=== PATIENT | female | born 1990 | race African-American/Black ===

== ENCOUNTER 2020-01-18 10:22 | Emergency (ER) | payer OTHER, SELFPAY ==
--- NOTE | ~2020-01-18 | US_ITS ---
EXAMINATION: US OB <= 14 weeks fetus DATE: 01/18/2020 11:38 INDICATION: Vaginal bleeding during first trimester TECHNIQUE: Real-time pelvic transabdominal and transvaginal ultrasound was performed. COMPARISON: None. FINDINGS: The uterus measures 7.9 x 4.5 x 4.3 cm. No intrauterine is identified. The endom etrial complex measures 11 mm in thickness. The right ovary measures 2.8 x 2.0 x 2.2 cm. The left ova ry measures 3.2 x 1.8 x 2.2 cm. There is a small amount of free fluid in the pelvis. IMPRESSION: 1. of unknown location. Although no intrauterine gestational sac is seen, this may be due t o early gestation. If the patient is clinically stable, recommend followup with serial beta-hCG and u ltrasound. Reviewed, dictated and finalized at location A. L PUNCH PRESS OPERATOR IMPRESSION: 1. of unknown location. Although no intrauterine gestational sac is s een, this may be due to early gestation. If the patient is clinically stable, r ecommend followup with serial beta-hCG and ultrasound.
[2020-01-18 10:24] VITALS: BP 110/73; PULSE 70; RESP 20; TEMP 37.7; O2SAT 100
[2020-01-18 10:37] VITALS: BP 120/76; PULSE 59; RESP 16; TEMP 36.3; O2SAT 99
[2020-01-18 10:37] LABS: Hematocrit 34.3 % (37.0-47.0); Hemoglobin 11.1 g/dL (12.0-15.0); Mean Corpuscular HGB Conc 32.4 g/dl (32-36); Mean Corpuscular Volume 86.6 fl (80-100); Mean Platelet Volume 12.5 fl (7.4-10.4); Platelet Count Result 161 k/mm3 (150-375); Red Blood Count 3.96 M/mm3 (4.2-5.4); Red Cell Distribution Width 14.6 % (11.5-14.5); White Blood Count 3.1 K/mm3 (4.5-10.0)
[2020-01-18 10:50] LABS: Eosinophils Absolute Manual 0.03 K/mm3 (0.02-0.5); Eosinophils Percent Manual 1 % (0-4); Lymphocytes Absolute Manual 1.42 K/mm3 (1.1-4.5); Monocytes Absolute Manual 0.09 K/mm3 (0.1-0.90); Monocytes Percent Manual 3 % (3-9); Neutrophils Percent Manual 50 % (46-73); Total Cells Counted 100
[2020-01-18 10:54] LABS: Ovalocytes 1+ (NORMAL); Platelet Estimate Adequate (Adequate); Target Cells 2+ (NORMAL)
[2020-01-18 10:55] LABS: Large Platelets Present
--- NOTE | 2020-01-18 10:59 | ED.FEMALEGU ---
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 Pt states that she began spotting on Friday (4 days ago) and was seen at [facility], who performed a pelvic exam and prescribed her Progesterone d/t her low HCG level. She stated that after taking the pills, she began spotting again, but today when she woke up she began having heavy vaginal bleeding and passing clots. Pt notes that she has not had an US yet and is scheduled to see her OBGYN for her first appointment on February 07, 2020. She denies having any significant PMHx and denies having any hx of an ectopic . Pt notes cramping, but denies any N/V/D. Pt's LNMP was 12/11/2019. elicited complaint: vaginal bleeding and possible miscarriage Onset (ago): hour(s) Vaginal bleeding: heavy and clots Associated symptoms: other (cramping) Treatment prior to arrival: other (Progesterone) Patient : Yes Date of Last Menstrual Period: 12/11/19 Related Data : 7 Para: 3 Total number of abortions (spontaneous and elective): 3 Home Medications Medication Instructions Recorded Confirmed progesterone micronized 200 mg PO HS 01/18/20 Allergies Allergy/AdvReac Type Severity Reaction Status Date / Time No Known Allergies Allergy Unverified 01/18/20 10:42 Review of Systems Review of Systems: All systems reviewed & are unremarkable except as noted in HPI and below Gastrointestinal: Gastrointestinal: Reports GI cramping, Denies diarrhea, Denies nausea and Denies vomiting Genitourinary: Genitourinary: Reports abnormal vaginal bleeding (heavy, passing clots) [facility], [facility] Past Medical History Medical History (Updated 01/18/20 @ 12:42 by Myron Alcantara MD) No significant past medical history Surgical History Surgical History (Updated 10/11/19 @ 14:44 by Baron Askew PA-C) Previous section Social History Social History (Updated 01/18/20 @ 11:27 by Lionel Quinn [facility]) Smoking status: Smoker, status unknown Tobacco type: cigars Gender identity (if verbalized by the patient): Female Exam Const: General: healthy appearing and no acute distress Nutritional Appearance: well nourished HENMT: Mouth: Yes lip normal and Yes moist mucous membranes Eyes: Conjunctivae: conjunctivae normal Pupils: Equal, round and reactive pupils present Resp: Effort & Inspection: normal respiratory effort Auscultation: clear to auscultation bilaterally Cardio: Rate: regular rate Rhythm: regular rhythm Heart sounds: no murmurs GI: GI Palp: Yes Soft to palpation and No Tenderness to palpation present (GI) Auscultation: normal bowel sounds : Speculum Exam - Vagina: normal appearance of the vagina and vaginal bleeding Speculum Exam - Cervix: normal appearance of the cervix and Cervical os closed Back/Spine/Pelvis: Other: Full ROM Skin: General skin exam: normal color, dry skin and other (warm) Neuro: General: patient oriented x3 (alert) Speech: normal speech Extrem: General: full ROM Psych: Mental Status: mental status grossly normal Affect: normal affect Course Vital Signs Vital signs: Vital Signs Temperature 37.7 C H 01/18/20 10:24 Pulse Rate 70 01/18/20 10:24 Respiratory Rate 20 01/18/20 10:24 Blood Pressure 110/73 01/18/20 10:24 Pulse Oximetry 100 01/18/20 10:24 Temperature 36.3 C L 01/18/20 10:37 Pulse Rate 78 01/18/20 12:51 Respiratory Rate 16 01/18/20 12:51 Blood Pressure 118/75 01/18/20 12:51 Pulse Oximetry 100 01/18/20 12:51 MDM - Female Genitourinary Lab Data Result diagrams: 01/18/20 10:30 Labs: Lab Results
[2020-01-18 11:06] LABS: Beta HCG Quantitative 22.37 mIU/ML
--- NOTE | 2020-01-18 11:16 | PC.NURSE ---
Pt in ultrasound at this time, report given to JONI lazo who has assumed pt care at this time.
[2020-01-18 12:51] VITALS: BP 118/75; PULSE 78; RESP 16; O2SAT 100
== END 2020-01-18 12:52 | disposition home or self-care (01) ==
PROVIDERS: Emergency Provider Emergency Medicine
DX: O03.9 Complete or unspecified spontaneous abortion without complication (principal)
CPT/HCPCS: 36415; 76801; 84702; 85025; 86900; 86901; 99284

== ENCOUNTER 2020-10-11 09:18 | Outpatient (CLI) | payer OTHER, SELFPAY ==
--- NOTE | ~2020-10-11 | US_ITS ---
EXAMINATION: US OB <=14 wk fetus w TV DATE: 10/11/2020 10:02 INDICATION: Routine care. TECHNIQUE: Real-time transabdominal pelvic ultrasound was performed. COMPARISON: None. FINDINGS: The uterus measures 10.9 x 6.6 x 6.6 cm. There is an intrauterine gestational sac. A yolk sac is iden tified. The crown rump length measures 2.1 cm, which correlates with an estimated gestational age of 8 weeks and 5 day(s) (+/-) 6 day(s). heart motion is identified measuring 159 beats per minute (bpm) by M-mode Doppler. There is a small subchorionic hematoma measuring 1.7 x 1.3 x 0.9 cm. The right ovary measures 2.2 x 1.8 x 1.5 cm. The left ovary is not visualized. There is no free fluid in the pelvis. IMPRESSION: 1. Single living intrauterine gestation with estimated date of delivery of 05/18/2021. 2. Small subchorionic hematoma. Reviewed, dictated and finalized at location A. IDENT & CEO IMPRESSION: 1. Single living intrauterine gestation with estimated date of delivery of 04/25. 2. Small subchorionic hematoma.
== END 2020-10-11 09:19 | disposition home or self-care (01) ==
LOC: ANHIMG 09:22
PROVIDERS: Visit Provider Obstetrics & Gynecology
DX: Z34.91 Encounter for supervision of normal pregnancy, unspecified, first trimester (principal); O36.8911 Maternal care for other specified fetal problems, first trimester, fetus 1; Z3A.00 Weeks of gestation of pregnancy not specified
CPT/HCPCS: 76801; 76817

== ENCOUNTER 2020-11-14 12:51 | Outpatient (CLI) | payer OTHER, SELFPAY ==
--- NOTE | ~2020-11-14 | US_ITS ---
EXAMINATION: US OB <=14 wk fetus w TV DATE: 11/14/2020 13:44 INDICATION: Encounter for supervision of normal TECHNIQUE: Real-time transabdominal obstetric ultrasound. FINDINGS: Comparison to 10/11/2020 There is a single living fetus in variable presentation. The placenta is anterior. cardiac activity and movement is noted with a heart rate of 149 beats per minute. T he amniotic fluid volume is subjectively normal. The ovaries are within normal limits. The following biometric data were obtained: BPD: 76mm corresponds to gestational age 13 weeks 5 days. Head circumference: 16 9mm corresponds to gestational age 12 weeks 6 days. Abdominal circumference: 74mm corresponds to gestational age 13 weeks 6 days. Femur length: 13mm corresponds to gestational age 13 weeks 6 days. Estimated weight: 83grams +/- 12grams.] IMPRESSION: 1. Single living intrauterine in variable presentation with an estimated gestational age o f 13 weeks 4 days by inititial ultrasound. Appropriate interval growth. 2. Normal placenta. Reviewed, dictated and finalized at location A. ICAL ASST IMPRESSION: 1. Single living intrauterine in variable presentation with an estim ated gestational age of 13 weeks 4 days by inititial ultrasound. Appropriate i nterval growth. 2. Normal placenta.
== END 2020-11-14 12:52 | disposition home or self-care (01) ==
PROVIDERS: PCP Obstetrics & Gynecology; Visit Provider Obstetrics & Gynecology
DX: Z34.90 Encounter for supervision of normal pregnancy, unspecified, unspecified trimester (principal); Z3A.13 13 weeks gestation of pregnancy
CPT/HCPCS: 76801; 76817

== ENCOUNTER 2021-01-03 11:12 | Outpatient (CLI) | payer OTHER, SELFPAY ==
--- NOTE | ~2021-01-03 | US_ITS ---
EXAMINATION: US OB /maternal detail DATE: 01/03/2021 11:59 INDICATION: Second trimester anatomic survey TECHNIQUE: Real-time ultrasound of the pelvis was performed. COMPARISON: 11/14/2020 FINDINGS: There is a single living fetus in variable presentation. The placenta is anterior. heart rate i s 133 beats per minute (bpm). cardiac activity and movement are noted. The amniotic flui d index is subjectively normal. The following anatomy was identified as normal: 4 chamber heart 3 vessel cord cord insertion kidneys urinary bladder stomach spine diaphragm ventricles cisterna magna cerebellum The following biometric data were obtained: Biparietal diameter (BPD): 4.7 cm; head circumference (HC): 18.1 cm; abdominal circumference (AC): 13 .8 cm; femur length (FL): 3.5 cm. The head circumference to abdominal circumference ratio is greater than two standard deviations above the mean. These measurements are otherwise concordant. Estimated weight is 335 g +/- 50 g, which correlates with the 19th percentile when 05/18/2021 is used as estimated date of delivery. As single measurements, these parameters are each equal to the following estimated gestational ages w ith ranges of +/- 2 standard deviations: BPD: 20 weeks 3 days +/- 1 weeks 5 days. HC: 20 weeks 4 days +/- 1 weeks 3 days. AC: 19 weeks 2 days +/- 2 weeks 0 days. FL: 21 weeks 1 days +/- 1 weeks 6 days. estimated gestational age based solely on measurements from this exam is 20 weeks 3 days +/- 1 weeks 3 days. IMPRESSION: 1. Single living fetus in variable presentation. 2. Estimated weight is 335 g +/- 50 g, which correlates with the 19th percentile when 05/18/2021 is used as estimated date of delivery. 3. Discordant head circumference to abdominal circumference ratio. Reviewed, dictated and finalized at location A. TING GATE DRIVER IMPRESSION: 1. Single living fetus in variable presentation. 2. Estimated weight is 335 g +/- 50 g, which correlates with the 19th per centile when 05/18/2021 is used as estimated date of delivery. 3. Discordant head circumference to abdominal circumference ratio.
== END 2021-01-03 11:13 | disposition home or self-care (01) ==
PROVIDERS: PCP Obstetrics & Gynecology; Visit Provider Obstetrics & Gynecology
DX: Z34.90 Encounter for supervision of normal pregnancy, unspecified, unspecified trimester (principal)
CPT/HCPCS: 76805